=== PATIENT | male | born 1970 | race Two or more races ===

== ENCOUNTER 2024-09-11 14:00 | Outpatient (RCR) | payer MEDICAID, SELFPAY ==
--- NOTE | 2024-08-17 14:25 | PTNOTE_ITS ---
PT OP Initial Eval Patient Information Visit Reasons: S/P RIGHT ROTATOR CUFF REPAIR Medical Diagnosis: Right Rotator CUff Tear; z98.890 Treatment Dx #1: Right Shoulder Mobility Deficits Treatment Dx #2: Right Shoulder Weakness Start of Care: 08/17/24 Date of Onset: 06/23/24 Smoking Status Smoking Status: Never smoker Initial Assessment Subjective: Pt is a 54 y/o male s/p right rotator cuff repair 06/23/24. Pt still has a lot of pain (8/10) with activities. Pt has limitation with lifting, chores, self care, cooking, cleaning, yardwork, and performing recreational activities. Objective: Right Shoulder PROM Flexion: 140 deg Abduction: 120 deg ER: 60 deg IR: unable due to pian Right Shoulder AROM Flexion: 95 deg Abduction: 80 deg ER and IR: unable Right Shoulder MMTs: grossly 3-/5 Right Scapula MMTs: grossly 3-/5 Assessment: Pt demonstrate right shoulder mobility and strength deficits s/p rotator cuff repair leading to difficulty with ADLs. Pt will benefit from physical therapy to increase ROM, strength, and work on stability. 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 1) Increase right shoulder PROM WNL in 12 wks to prevent frozen shoulder 2) Increase right shoulder AROM WFL in 12 wks to be able to perform overhead motions 3) Increase right shoulder MMTs grossly 4/5 in 12 wks to be able to perform lifting activities 4) Increase right scapula MMTs grossly to 4-/5 in 12 wks to be able to perform recreational actvities 5) Indep with HEP Treatment Plan 1) Manual Therapy 2) Therapeutic Activities 3) Therapeutic Exercises 4) Modalities (ice, heat) Frequency and Duration: 2 x wk for 12 wks Certification Dates: 08/17/24 to 11/14/24 Procedure Charges OP PT Eval Mod Complex 30 minutes: Yes
--- NOTE | 2024-08-21 11:59 | PT.ODAYNRPT ---
PT Outpatient Daily Note OP Daily Note Outpatient Physical Therapy Treatment Date: 08/21/24 Visit Reasons: S/P RIGHT ROTATOR CUFF REPAIR Subjective: Pt's shoulder hurts but able to move it more lately. Objective: Please see flow chart for list of ther ex performed Assessment: demonstrate improvement with shoulder AAROM flexion post PT session. Ice helped with pain and soreness Plan: Continue with PT Length of Time (minutes) of Treatment: 30 Minutes Procedure Charges Therapeutic Exercise 30 minutes: Yes
--- NOTE | 2024-08-26 11:28 | PT.ODAYNRPT ---
PT Outpatient Daily Note OP Daily Note Outpatient Physical Therapy Treatment Date: 08/26/24 Visit Reasons: S/P RIGHT ROTATOR CUFF REPAIR Subjective: Pt's shoulder feels better, however, notice a scab on the surgical site. Objective: Please see flow chart for list of ther ex performed Assessment: progressing with exercises. Pt's concern was assessed and looks WNL and educated safe to continue with PT. Plan: Continue with PT Length of Time (minutes) of Treatment: 30 Minutes Procedure Charges Therapeutic Exercise 30 minutes: Yes
--- NOTE | 2024-09-02 14:20 | PT.ODAYNRPT ---
PT Outpatient Daily Note OP Daily Note Outpatient Physical Therapy Treatment Date: 09/02/24 Visit Reasons: S/P RIGHT ROTATOR CUFF REPAIR Subjective: Pt reports R francheska is really sore today and feels it is more swollen today. Pt shared that his surgeon recommended he stay from doing chores such as washing dishes. Objective: Please see flow sheet for ther ex list. Assessment: Regressed interventions to accommodate reported pain. Plan: Continue with pOC. Length of Time (minutes) of Treatment: 30 Minutes Procedure Charges Therapeutic Exercise 30 minutes: Yes
--- NOTE | 2024-09-04 13:39 | PT.ODAYNRPT ---
PT Outpatient Daily Note OP Daily Note Outpatient Physical Therapy Treatment Date: 09/04/24 Visit Reasons: S/P RIGHT ROTATOR CUFF REPAIR Subjective: Pt's shoulder is slowly feeling better. Pain is less intense now. Objective: Please see flow chart for list of ther ex performed Assessment: progressing with shoulder AAROM flexion and scaption with less pain reported. Pt also demonstrate less swelling in the shoulder. Plan: Continue with PT Length of Time (minutes) of Treatment: 30 Minutes Procedure Charges Therapeutic Exercise 30 minutes: Yes
--- NOTE | 2024-09-11 14:53 | PT.ODAYNRPT ---
PT Outpatient Daily Note OP Daily Note Outpatient Physical Therapy Treatment Date: 09/11/24 Visit Reasons: S/P RIGHT ROTATOR CUFF REPAIR Subjective: Pt's shoulder feels okay. Pt notice he's able to move with less pain. Objective: Please see flow chart for list of ther ex performed Assessment: progressing with shoulder flexion and scaption AAROM with less upper trape recruitment. Post ice helped with pain Plan: Continue with PT Length of Time (minutes) of Treatment: 30 Minutes Procedure Charges Therapeutic Exercise 30 minutes: Yes
== END 2024-09-11 23:59 | disposition home or self-care (01) ==
LOC: CPTX 14:00
PROVIDERS: PCP Orthopaedic Surgery; Referring Provider Orthopaedic Surgery; Visit Provider Orthopaedic Surgery
DX: M25.511 Pain in right shoulder (principal); R53.1 Weakness; Z98.890 Other specified postprocedural states
CPT/HCPCS: 97110; 97162

== ENCOUNTER → 2024-09-15 | Outpatient (CLI) | payer MEDICAID, SELFPAY ==
--- NOTE | 2024-09-15 12:59 | XR_ITS ---
Examination: Knee bilateral, 8 views Technique: Knee AP, lateral, oblique, axial H knee total 8 views Date and time of exam: September 15, 2024 1212 hours INDICATIONS: Bilateral knee pain beginning several years ago. FINDINGS: Prominent osteopenia Bilateral moderate to advanced tricompartment osteoarthritis No patellar dislocation No fractures IMPRESSION: Bilateral moderate to advanced tricompartment osteoarthritis
== END | disposition home or self-care (01) ==
LOC: CDIM 12:49
PROVIDERS: PCP Registered Nurse Community Health; Referring Provider Nurse Practitioner Family; Visit Provider Nurse Practitioner Family
DX: M17.0 Bilateral primary osteoarthritis of knee (principal)
CPT/HCPCS: 73564

== ENCOUNTER 2024-09-22 13:30 | Outpatient (RCR) | payer MEDICAID, SELFPAY ==
--- NOTE | 2024-09-17 14:12 | PT.ODAYNRPT ---
PT Outpatient Daily Note OP Daily Note Outpatient Physical Therapy Treatment Date: 09/17/24 Visit Reasons: S/P rt rotator cuff Subjective: Pt's shoulder feels better, however, notice some numbness in his thumb up to the elbow lately. Objective: Please see flow chart for list of ther ex performed Assessment: progressing with shoulder AROM. difficulty with HBB AROM due to ant capsule tightness, however, able to improve with range post exercise Plan: Continue with PT Length of Time (minutes) of Treatment: 30 Minutes Procedure Charges Therapeutic Exercise 30 minutes: Yes
--- NOTE | 2024-09-22 13:55 | PT.ODS1RPT ---
PT OP Progress/Discharge Note Date of Service: 09/22/24 Progress Note/DC Note Progress Note/Discharge Note: Progress Note Patient Information Visit Reasons: S/P rt rotator cuff Medical Diagnosis: Right Rotator CUff Tear; z98.890 Treatment Dx #1: Right Shoulder Mobility Deficits Service Continue Service or Discharge: Continue Service Certification Date Certification Dates: 09/22/24 to 12/23/24 Status Subjective: Pt's shoulder feels much better. Pt still has some pain with overhead motions but it is getting easier. Pt also mention he's been able to reach further behind the back. Pt still has difficulty with reaching, lifting, chores, and performing recreational activities. Objective: Right Shoulder AROM Flexion: 150 deg Abduction: 95 deg External Rotation: 80 deg Internal Rotation: 60 deg Right Shoulder MMTs: grossly 3-/5 Right Scapula MMTs: grossly 3-/5 Assessment: Pt continues to improve with shoulder AROM allowing him to start light ADLs with less limitation. Pt will continue to benefit from physical therapy to work on strength, overhead motions, and be able to perform recreational activities; thank you for your referrals. Plan: Continue with PT/POC and add 8 sessions (2 x wk for 4 wks) Procedure Charges Therapeutic Exercise 30 minutes: Yes
== END 2024-10-12 23:59 | disposition home or self-care (01) ==
LOC: CPTX 13:30
PROVIDERS: PCP Orthopaedic Surgery; Referring Provider Orthopaedic Surgery; Visit Provider Orthopaedic Surgery
DX: M25.511 Pain in right shoulder (principal); R53.1 Weakness; Z98.890 Other specified postprocedural states
CPT/HCPCS: 97110

== ENCOUNTER 2024-10-13 15:09 | Outpatient (RCR) | payer MEDICAID, SELFPAY ==
--- NOTE | 2024-10-13 15:17 | PT.ODAYNRPT ---
PT Outpatient Daily Note OP Daily Note Outpatient Physical Therapy Treatment Date: 10/13/24 Visit Reasons: S/P rotator cuff Subjective: Pt's shoulder feels better. Pt seen surgeon and was satisfy with his results so far. Objective: Please see flow chart for list of ther ex performed Assessment: progressing with HBB AROM and overall shoulder ROM with less pain reported Plan: Continue with PT Length of Time (minutes) of Treatment: 30 Minutes Procedure Charges Therapeutic Exercise 30 minutes: Yes
--- NOTE | 2024-10-15 10:21 | PT.ODS1RPT ---
PT OP Progress/Discharge Note Date of Service: 10/15/24 Progress Note/DC Note Progress Note/Discharge Note: DC Note Patient Information Visit Reasons: S/P rotator cuff Service Discharge Date: 10/15/24 Status Assessment: Pt has been seen for 9 visits (eval + 8 visits). Pt last treated on 10/14/23. At this time Pt will be d/c from care due to inactive insurance. Pt did not meet set goals in therapy. Pt will need new MD order and auth to resume physical therapy; thank you for your referrals
== END 2024-11-11 23:59 | disposition home or self-care (01) ==
LOC: CPTX 15:09
PROVIDERS: PCP Orthopaedic Surgery; Referring Provider Orthopaedic Surgery; Visit Provider Orthopaedic Surgery
DX: M25.511 Pain in right shoulder (principal); R53.1 Weakness; Z98.890 Other specified postprocedural states
CPT/HCPCS: 97110

== ENCOUNTER → 2024-10-28 | Outpatient (CLI) | payer MEDICAID, SELFPAY ==
--- NOTE | 2024-10-28 13:00 | XR_ITS ---
Examination: Bone densitometry Date and time of exam:October 28, 2024 1326 hours INDICATIONS: 54-year-old male taking prednisone for gout, family history, mother osteoporosis Technique: Lumbar spine and hip total bone mineralization values of an calculated. Peak reference and age match control results have been displayed. Findings: Lumbar spine total bone mineralization is0.897 gm/cm2. This is 1.8 standard deviations below peak reference. This is 1.3 standard deviations below age-matched controls. Hip total bone mineralization is 0.986 gm/cm2 This is 0.5 standard deviations below peak reference. This is 0.3 standard deviations below age-matched controls Impression: There is osteopenia based on lumbar spine measurements. There is osteopenia based on hip measurements
== END | disposition home or self-care (01) ==
LOC: CDIM 12:46
PROVIDERS: PCP Registered Nurse Community Health; Referring Provider Nurse Practitioner Family; Visit Provider Nurse Practitioner Family
DX: M85.89 Other specified disorders of bone density and structure, multiple sites (principal); Z91.89 Other specified personal risk factors, not elsewhere classified; Z79.52 Long term (current) use of systemic steroids
CPT/HCPCS: 77080

== ENCOUNTER → 2024-11-20 | Outpatient (CLI) | payer MEDICAID, SELFPAY ==
--- NOTE | 2024-11-20 13:34 | XR_ITS ---
Examination: Cervical spine 4 views Technique one AP lateral swimmer's lateral coned AP odontoid cervical spine 4 views Exam date and time: November 20, 2024 1346 hours INDICATIONS: Neck pain beginning 5 months ago. FINDINGS: Adequate alignment cervical vertebral bodies No cervical fracture Advanced disc narrowing C4-C5, C5-C6, C6-C7 Intact odontoid IMPRESSION: Advanced degenerative disc disease C4-C5, C5-C6, C6-C7
== END | disposition home or self-care (01) ==
LOC: CDIM 13:20
PROVIDERS: PCP Registered Nurse Community Health; Referring Provider Orthopaedic Surgery; Visit Provider Orthopaedic Surgery
DX: M50.121 Cervical disc disorder at C4-C5 level with radiculopathy (principal)
CPT/HCPCS: 72040

== ENCOUNTER → 2025-02-05 | Outpatient (CLI) | payer MEDICAID, SELFPAY ==
--- NOTE | 2025-02-05 07:00 | XR_ITS ---
Examination: MRI cervical spine without intravenous contrast Date and time of exam: February 05, 2025 0744 hours INDICATIONS: Neck pain radiating to both arms numbness in the hands weakness in the hands 18 months Technique: Multiple axial and sagittal sections of the cervical spine to been obtained. T2 weighted sagittal sections, TR 3, 270, TE 117 T1-weighted sagittal sections, TR 500, TE 11 T1-weighted axial sections, TR 607, TE 12, axial sections TR 18, TE 27 and T2 weighted transverse sections, TR 3920, TE 122. Findings: Adequate alignment cervical vertebral bodies Moderate to advanced disc narrowing C4-C5, C5-C6 No cervical fracture Diffuse cervical disc desiccation No localized enlargement cervical cord C2-C3 no disc protrusion C3-C4 moderate left neural foraminal stenosis C4-C5 no disc protrusion C5-C6 moderate left foraminal stenosis C6-C7 moderate bilateral neural foraminal stenosis C7-T1 no disc protrusion IMPRESSION: Moderate to advanced degenerative disc disease C4-C5, C5-C6 C3-C4, C5-C6 moderate left neural foraminal stenosis C6-C7 moderate bilateral neural foraminal stenosis
== END | disposition home or self-care (01) ==
LOC: SMRI 07:26
PROVIDERS: PCP Registered Nurse Community Health; Referring Provider Registered Nurse Community Health; Visit Provider Registered Nurse Community Health
DX: M50.321 Other cervical disc degeneration at C4-C5 level (principal); M48.02 Spinal stenosis, cervical region
CPT/HCPCS: 72141

== ENCOUNTER → 2025-03-25 | Outpatient (CLI) | payer MEDICAID, SELFPAY ==
--- NOTE | 2025-03-25 09:00 | XR_ITS ---
MRI shoulder, right, without contrast. Date and time: March 25, 2025 0959 hours, comparison September 05, 2023 INDICATIONS: Right shoulder pain and swelling 2 years, diagnosis complete rotator cuff tear or rupture of the right shoulder, joint locking clicking swelling 2 years Technique: Multiple axial, sagittal and coronal sections of the shoulder have been obtained. Siemens high-resolution 1.5 Radha MRI scanner is utilized. Axial fat-suppressed sections, TR 2350, TE 18 T2-weighted coronal fat-saturated images, TR 3500, TE 7100 T1-weighted coronal images, TR 500, TE 15 T2-weighted sagittal fat-saturated images, TR 3500, TE 57 T1-weighted sagittal sections, TR 504, TE 13. Findings: Supraspinatus tendon insertion is intact. Infraspinatus tendon insertion is intact. Subscapularis insertion is intact. Subscapularis bursa is not seen. Long head of the biceps is in the bicipital groove. No definite tear of the biceps superior labral anchor is seen. Retraction of the musculotendinous junction of the rotator cuff is not seen . Tendinosis pattern is moderate. Distance between the acromium and humeral head is 5.8 mm Atrophy of the supraspinatus muscle is mild . Atrophy of the infraspinatus muscle is mild. Sagittal sections demonstrate a horizontal acromion. Acromioclavicular joint demonstrates mild osteoarthritis . Osacromiale is not identified. Anterior superior labral tears. Bony glenoid fossa on the sagittal sections does not demonstrate osseous defect. Occult fracture or area of avascular necrosis is not seen. Acromioclavicular joint separation is not visible. Defect in the posterolateral margin of the humeral head is not seen Impression: Rotator cuff intact. Anterior superior labral tears
== END | disposition home or self-care (01) ==
LOC: SMRI 08:45
PROVIDERS: PCP Registered Nurse Community Health; Referring Provider Registered Nurse Community Health; Visit Provider Registered Nurse Community Health
DX: S43.431A Superior glenoid labrum lesion of right shoulder, initial encounter (principal); X58.XXXA Exposure to other specified factors, initial encounter
CPT/HCPCS: 73221